=== PATIENT | female | born 1955 | race Caucasian/White ===

== ENCOUNTER 2021-08-19 10:42 | Inpatient (IN) | payer MEDICARE, OTHER ==
[~2021-08-19] VITALS: Ht 165.1 cm; Wt 93.2 kg
[2021-08-19] MEDS ORDERED: QUET300T2 PO (10:55)
[2021-08-19] MEDS ORDERED: BUPR150T12 PO (10:55)
[2021-08-19] MEDS ORDERED: PRAMIPEXOLE (10:55)
[2021-08-19] MEDS ORDERED: DEXTROAMP (10:55)
[2021-08-19] MEDS ORDERED: METO1TAB7 PO (10:55)
[2021-08-19] MEDS ORDERED: ENAL5TA PO (10:55)
[2021-08-19] MEDS ORDERED: ONDANSETRON 4MG/2ML VIAL IV ONE ×2 (11:10→12:20)
[2021-08-19] MEDS: MORPHINE 4 MG/ML 1ML VIAL/SYRINGE (J2270) IV PRN ×3 (11:15→11:51)
[2021-08-19] MEDS ORDERED: NS 1,000 ML IV SCH (11:20)
--- NOTE | 2021-08-19 11:32 | REP ---
INDICATION: right Hip pain COMPARISON: None. TECHNIQUE: Portable AP and lateral views of the right hip FINDINGS: Evidence for dislocated right hip replacement. No acute fracture. IMPRESSION: Right hip prosthesis dislocation. <Electronically signed by Ariel Dalton > 08/19/21 1122
[2021-08-19] MEDS: propofoL 200 MG/20 ML VIAL IV.PROC PRN ×9 (11:55→12:36)
--- NOTE | 2021-08-19 12:21 | REP ---
INDICATION: reduction COMPARISON: None. TECHNIQUE: Single AP view of the right hip. FINDINGS: Prior hip replacement noted. No acute fracture. Continued superior dislocation of the femur in relation to the acetabulum. IMPRESSION: Continued evidence for superior dislocation. <Electronically signed by Ariel Dalton > 08/19/21 2683
[2021-08-19] MEDS ORDERED: MORPHINE 4 MG/ML 1ML VIAL/SYRINGE (J2270) IV PRN (12:50)
--- NOTE | 2021-08-19 12:52 | REP ---
INDICATION: ?reduction Status post arthroplasty. COMPARISON: None. TECHNIQUE: Single portable AP view of the right hip FINDINGS: Continued evidence for superior dislocation of the hip prosthesis. IMPRESSION: Continued superior dislocation. <Electronically signed by Ariel Dalton > 08/19/21 2882
--- NOTE | 2021-08-19 13:07 | REP ---
INDICATION: pre-op. COMPARISON: None. TECHNIQUE: Portable FINDINGS: The technique utilized in obtaining the radiograph has magnified the cardiac silhouette and accentuated the interstitial markings. The cardiomediastinal silhouette is within normal limits. The heart is not enlarged. Lung white are clear. The pleural angles are sharp. There is been previous cervicothoracic fixation and left shoulder arthroplasty. IMPRESSION: There is no acute cardiopulmonary disease. <Electronically signed by Andrew Brennan > 08/19/21 3800
[2021-08-19 13:29] LABS: HEMATOCRIT 40.3 % (36.0-47.0); HEMOGLOBIN 12.8 g/dl (12.0-15.5); MEAN CORPUSCULAR HEMOGLOBIN 26.1 pg (27.0-33.0); MEAN CORPUSCULAR HGB CONC 31.8 g/dl (32.0-36.5); MEAN CORPUSCULAR VOLUME 82.2 fl (80.0-96.0); PLATELET COUNT, AUTOMATED 446 10^3/uL (150-450)
[2021-08-19 13:34] LABS: BLOOD UREA NITROGEN 15 MG/DL (7-18); CALCIUM LEVEL 9.7 MG/DL (8.8-10.2); CARBON DIOXIDE LEVEL 27 MEQ/L (21-32); CHLORIDE LEVEL 102 MEQ/L (98-107); CK-MB VALUE MASS < 1.0 NG/ML (<3.6); CPK CREATINE PHOSPHOKINASE 129 U/L (26-192); CREATININE FOR GFR 1.29 MG/DL (0.55-1.30); GLOMERULAR FILTRATION RATE 44.2 (>45); GLUCOSE, FASTING 121 MG/DL (70-100); MB/CK RELATIVE INDEX 0.78 (< OR =4); POTASSIUM SERUM 3.6 MEQ/L (3.5-5.1); SODIUM LEVEL 137 MEQ/L (136-145); TROPONIN I < 0.02 NG/ML (< 0.10)
--- OUTSIDE RECORDS SUMMARY | 2021-08-19 14:23 | CCD | Continuity of Care Document ---
Author Author Gosia FOSTER Organization Unknown Address [address] [facility] [address] [place] [address] Phone [phone] Care Team Providers Care Spouter Name Role Phone ROBERT FOSTER AUTM Social History Type Date Description Comments Sex Unknown Procedures Date Code Description Status 07/28/2021 03583 Office/Outpatient [facility] 30 -44 Minutes Completed Encounters Type Date Location Provider Dx Diagnosis Office Visit 07/28/2021 10:30a [facility] PAM Escalante I10 Essential (primary) hyperten nguyen E78.5 Hyperlipidemia, unspecified F90.9 Attention-deficit hyperactiv ity disorder, unspecified type Assessments Date Code Description Provider 07/28/2021 I10 Essential (primary) hypertension PAM Steward 07/28/2021 E78.5 Hyperlipidemia, unspecified PAM Delgado 07/28/2021 F90.9 Attention-deficit hyperactivity disorder, unspecified type PAM Steward Plan of Treatment Future Appointment(s):* 10/26/2021 10:30 am - PAM Steward at [facility] Referrals Refer to Reason for Referral Status Appt Date Niurka Keith DR. NEW PATIENT TO MY PRACTICE, NEEDS MONITORING OF HER CHF. PLEASE EVAL AND TREAT Sent [facility] [address] [place], [place] [id number] [phone] [facility] NEW PATIENT TO PRACTICE AND RECENTLY MOVED TO [place]. HAS HAD RECENT RT HIP SURGERY. NEEDS HEALING FOLLOW UP CARE. Sent [address] [place] [address] [phone]
--- OUTSIDE RECORDS SUMMARY | 2021-08-19 14:23 | CCD ---
Author Author [facility] Organization [facility] Address Unknown Phone Unavailable Care Team Providers Care Desk Editor Name Role Phone TONTARSEDMUNDO, G ROBERT PA Unavailable Unavailable TONTARSKI, G ROBERT PA Unavailable Unavailable TONTARSKI, G ROBERT PA Unavailable Unavailable TONTARSKI, G ROBERT PA Unavailable Unavailable TONTARSKI, G ROBERT PA Unavailable Unavailable TONTARSKI, G ROBERT PA Unavailable Unavailable TONTARSKI, G ROBERT PA Unavailable Unavailable TONTARSKI, G ROBERT PA Unavailable Unavailable TONTARSKI, G ROBERT PA Unavailable Unavailable TONTARSKI, G ROBERT PA Unavailable Unavailable TONTARSKI, G ROBERT PA Unavailable Unavailable TONTARSKI, G ROBERT PA Unavailable Unavailable TONTARSKI, G ROBERT PA Unavailable Unavailable TONTARSKI, G ROBERT PA Unavailable Unavailable TONTARSKI, G ROBERT PA Unavailable Unavailable TONTARSKI, G ROBERT PA Unavailable Unavailable TONTARSKI, G ROBERT PA Unavailable Unavailable TONTARSKI, G ROBERT PA Unavailable Unavailable TONTARSKI, G ROBERT PA Unavailable Unavailable TONTARSKI, G ROBERT PA Unavailable Unavailable TONTARSKI, G ROBERT PA Unavailable Unavailable TONTARSKI, G ROBERT PA Unavailable Unavailable TONTARSKI, G ROBERT PA Unavailable Unavailable TONTARSKI, G ROBERT PA Unavailable Unavailable TONTARSKI, G ROBERT PA Unavailable Unavailable TONTARSKI, G ROBERT PA Unavailable Unavailable TONTARSKI, G ROBERT PA Unavailable Unavailable TONTARSKI, G ROBERT PA Unavailable Unavailable TONTARSKI, G ROBERT PA Unavailable Unavailable TONTARSKI, G ROBERT PA Unavailable Unavailable TONTARSKI, G ROBERT PA Unavailable Unavailable TONTARSKI, G ROBERT PA Unavailable Unavailable TONTARSKI, G ROBERT PA Unavailable Unavailable TONTARSKI, G ROBERT PA Unavailable Unavailable TONTARSKI, G ROBERT PA Unavailable Unavailable TONTARSKI, G ROBERT PA Unavailable Unavailable TONTARSKI, G ROBERT PA Unavailable Unavailable TONTARSKI, G ROBERT PA Unavailable Unavailable TONTARSKI, G ROBERT PA Unavailable Unavailable TONTARSKI, G ROBERT PA Unavailable Unavailable TONTARSKI, G ROBERT PA Unavailable Unavailable TONTARSKI, G ROBERT PA Unavailable Unavailable TONTARSKI, G ROBERT PA Unavailable Unavailable TONTARSKI, G ROBERT PA Unavailable Unavailable TONTARSKI, G ROBERT PA Unavailable Unavailable TONTARSKI, G ROBERT PA Unavailable Unavailable TONTARSKI, G ROBERT PA Unavailable Unavailable Re-disclosure Warning The records that you are about to access may contain information from federally-assisted alcohol or drug abuse programs. If such information is present, then the following federally mandated warning applies: This information has been disclosed to you from records protected by federal confidentiality rules (42 CFR part 2). The federal rules prohibit you from making any further disclosure of this information unless further disclosure is expressly permitted by the written consent of the person to whom it pertains or as otherwise permitted by 42 CFR part 2. A general authorization for the release of medical or other information is NOT sufficient for this purpose. The Federal rules restrict any use of the information to criminally investigate or prosecute any alcohol or drug abuse patient.The records that you are about to access may contain highly sensitive health information, the redisclosure of which is protected by Article 27-F of the [place] Public [facility] law. If you continue you may have access to information: Regarding HIV / AIDS; Provided by facilities licensed or operated by the [place] Office of Mental Health; or Provided by the [place] Office for People With Developmental Disabilities. If such information is present, then the following [place] mandated warning applies: This information has been disclosed to you from confidential records which are protected by state law. State law prohibits you from making any further disclosure of this information without the specific written consent of the person to whom it pertains, or as otherwise permitted by law. Any unauthorized further disclosure in violation of state law may result in a fine or shelter sentence or both. A general authorization for the release of medical or other information is NOT sufficient authorization for further disc losure. Encounters Encounter Providers Location Date Indications Data Source(s ) Outpatient Attender: [facility] 07/28/2021 10:30:00 AM EDT [facility] (Terry Hewitt MD) Medications Medication Brand Name Start Date Product Form Dose Route Admi nistrative Instructions Pharmacy Instructions Status Indications Reaction Description Data Source(s) 300 mg 08/03/2021 12:00:00 AM EDT tablet 30 TAKE ONE TABLET BY MOUTH AT BEDTIME TAKE ONE TABLET BY MOUTH AT BEDTIME SOLD: 08/08/2021 [facility] 24 HR Bupropion Hydrochloride 150 MG Extended Release Oral T ablet BUPROPION HCL 08/01/2021 12:00:00 AM EDT tablet extended release 24 hr 30 TAKE ONE TABLET BY MOUTH EVERY MORNING TAKE ONE TABLET BY MOUTH EVERY MORNING SOLD: 08/08/2021 [facility] 50 mg 07/29/2021 12:00:00 AM EDT tablet extended release 24 hr 90 TAKE ONE TABLET BY MOUTH EVERY DAY TAKE ONE TABLET BY MOUTH EVERY DAY SOLD: 07/29/2021 [facility] 5 mg 07/29/2021 12:00:00 AM EDT tablet 90 TAKE ONE TABLET BY MOUTH EVERY DAY TAKE ONE TABLET BY MOUTH EVERY DAY SOLD: 07/29/2021 [facility] Pramipexole dihydrochloride 0.5 MG Oral Tablet PRAMIPEXOLE D I-HCL 07/29/2021 12:00:00 AM EDT tablet 90 TAKE ONE TABLET BY MOUTH AT BEDTIME TAKE ONE TABLET BY MOUTH AT BEDTIME SOLD: 07/29/2021 [facility] 5 mg 07/21/2021 12:00:00 AM EDT tablet 60 TAKE ONE TABLET BY MOUTH TWICE A DAY MAXIMUM DAILY DOSE = 2 TAKE ONE TABLET BY MOUTH TWICE A DAY MAX IMUM DAILY DOSE = 2 SOLD: 07/21/2021 [facility] Insurance Providers Payer name Policy type / Coverage type Policy ID Covered libertarian ID Covered libertarian's relationship to ramirez Policy Ramirez Plan Information BC BLUE CARD 1 [id number] AETNA OPEN CH INACTI 2 [id number] BC EXC PLANS 1 [id number] BLUE CROSS [id number] SPO [id number] BC EXC PLANS 1 [id number] BLUE CROSS CNY 1 [id number] EXCELLUS H [id number] Spouse [id number] BC EXC PLANS 1 [id number] BCBS Ppo Medigap Part B [id number] Family Dependent BCBS Ppo Health Maintenance Organization (HMO) [id number] Fa brijesh Dependent EXCELLUS C [id number] Self [id number] AETNA LIFE CASUALTY [id number] SP [id number] AETNA U [id number] Spouse [id number] AETNA U [id number] Spouse [id number] AETNA LIFE CASUALTY [id number] SPO [id number] STATE FARM E [id number] Self [id number] State Farm Insurance Workers Compensation [id number] Self State Farm Insurance Workers Compensation [id number] Self State Farm Insurance Workers Compensation [id number] Self State Farm Insurance Workers Compensation [id number] Self State Farm Insurance Workers Compensation [id number] Self STATE FARM E [id number] Self [id number] State Farm Insurance Workers Compensation [id number] Self State Farm Insurance Workers Compensation [id number] Self State Farm Insurance Workers Compensation [id number] Self State Farm Insurance Workers Compensation [id number] Self No Fault Workers Compensation [id number] Self No Fault Workers Compensation [id number] Self No Fault Workers Compensation [id number] Self Aetna [facility] F [id number] SPOUSE [id number] MEDICARE A Self NCO EPALS [id number] SP [id number] S O UNAVAILABLE UNAVAILA BLE AETNA MEDICARE [id number] SP [id number] AETNA [place] [id number] Aetna [id number] 18 [id number] SELF PAY UNAVAILABLE UNAVAILA BLE Aetna US [employer] Commercial [id number] Family Dependent AETNA LIFE INSURANCE CO 0 Commercial Insur ance AETNA O [id number] SP [id number] Aetna [employer] Healthcare F [id number] SPOUSE [id number] 18 [id number] NF State Farm No Fault [id number] 18 [id number] Aetna [employer] Commercial [id number] Family Dependent Aetna [employer] Health Care Commercial [id number] Family Dependent Blue Shield Market[employer] [id number] 01 [id number] Blue Shield [facility] [id number] 01 [id number] Blue Shield [facility] [id number] STATE FARM NF O [id number] S [id number] BLUE CROSS O [id number] SP [id number] STATE FARM NF O UNAVAILABLE S UNAV AILABLE BLUE CROSS O [id number] SP [id number] BLUE CROSS O [id number] SP [id number] BLUE CROSS [id number] SPO [id number] BCBS HMO [place]UE[place] O [id number] U [id number] SELF PAY 2 UNAVAILABLE 1 UNAVAILA BLE BC EXC PLANS 1 [id number] SELFPAY 5 UNAVAILABLE 1 UNAVAILA BLE Blue Shield [facility] [id number] 18 [id number] BC BLUE CARD 1 [id number] Problems, Conditions, and Diagnoses No Information Surgeries/Procedures Procedure Description Date Indications Data Source(s) OFFICE OUTPATIENT NEW 30 MINUTES 07/28/2021 12:00:00 A M EDT [facility] (Terry Hewitt MD) Results No Information Social History No Information
--- OUTSIDE RECORDS SUMMARY | 2021-08-19 14:23 | CCD | Continuity of Care Document ---
Author Author Gosia FOSTER Organization Unknown Address [address] [facility] [address] [place] [address] Phone [phone] Care Team Providers Care Cigarette Carton Sealer Name Role Phone ROBERT FOSTER AUTM Social History Type Date Description Comments Sex Unknown Procedures Date Code Description Status 07/28/2021 20306 Office/Outpatient New [facility] 30 -44 Minutes Completed Encounters Type Date Location Provider Dx Diagnosis Office Visit 07/28/2021 10:30a [facility] PAM Escalante I10 Essential (primary) hyperten nguyen E78.5 Hyperlipidemia, unspecified F90.9 Attention-deficit hyperactiv ity disorder, unspecified type Assessments Date Code Description Provider 08/04/2021 I10 Essential (primary) hypertension PAM Steward 08/04/2021 E78.5 Hyperlipidemia, unspecified PAM Delgado 07/28/2021 I10 Essential (primary) hypertension PAM Steward 07/28/2021 E78.5 Hyperlipidemia, unspecified PAM Delgado 07/28/2021 F90.9 Attention-deficit hyperactivity disorder, unspecified type PAM Steward Plan of Treatment Future Appointment(s):* 10/26/2021 10:30 am - PAM Steward at [facility] Referrals Refer to Reason for Referral Status Appt Date Niurka Keith DR. NEW PATIENT TO MY PRACTICE, NEEDS MONITORING OF HER CHF. PLEASE EVAL AND TREAT Sent [facility] [address] [address] [place] [address] [phone] [facility] NEW PATIENT TO PRACTICE AND RECENTLY MOVED TO [place]. HAS HAD RECENT RT HIP SURGERY. NEEDS HEALING FOLLOW UP CARE. Sent [address] [address] [phone]
[2021-08-19 14:24] LABS: RSV AMPLIFICATION NEGATIVE (NEGATIVE)
[2021-08-19] MEDS ORDERED: MIRA0.5T PO (15:01)
[2021-08-19] MEDS ORDERED: ADDE1TAB14 PO (15:01)
[2021-08-19] MEDS ORDERED: HOME MED LIST COMPLETE! XX SCH (15:05)
[2021-08-19 15:40] VITALS: BP 108/77
[2021-08-19] MEDS ORDERED: HYDROMORPHONE HCL 0.5 MG/ 0.5 ML SYRINGE (J1170 PER 1) IV PRN ×2 (15:45→18:45)
[2021-08-19] MEDS ORDERED: D5W/0.45% SODIUM CHLORIDE 1,000 ML IV SCH (16:00)
--- NOTE | 2021-08-19 16:17 | HPEPDOC ---
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 She describes 10/10 sharp pain in the right hip radiating to her foot w difficulty standing up, bearing weight, and ambulating. Pt was in her usual state of health until today, and denies any chest pain, pressure, tightness, dizziness, lightheadedness, sob, cough, fever, chills, n/v/abd pain/diarrhea, constipation, dysuria, urgency,frequency, flank pain, changes in weight/appetite/sleep habits/bowel habits, rash, muscle aches, headache, sore throat, ear pain/discharge, anxiety. In the ER, both Dr. Gill and Dr. Ngo attempted x 2 to correct the dislocated right prosthetic hip , but were unsuccessful. Covid was negative, CXR no infiltrates or edema. EKG-sinus. Hospitalist was asked to admit the patient. Ortho to bring the pt to the OR today. PAST MEDICAL HISTORY: HTN CHF, unknown EF legg carve perthes disease Depression Uterine bleeding requiring partial hysterectomy PAST SURGICAL HISTORY: Right hip replacement 03/2021 Partial hysterectomy left foot surgery back and neck surgery SOCIAL HISTORY: full code denies etoh cig drug use. 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 REVIEW OF SYSTEMS:10 point ros neg aside from positive findings in HPI C HOME MEDICATIONS: Please see below. PHYSICAL EXAMINATION: VITAL SIGNS: see below GENERAL APPEARANCE: no distress HEENT: face symmetric tongue midline moist mm no cervical lad, JVD CARDIOVASCULAR: S1S2 RRR no S3 no carotid bruit LUNGS: AEBE CTAB ABDOMEN: +BS soft nt nd no rbound or guarding no HSM EXTREMITIES: right hip tender, no edema b/l le. dp and pt noted b/l feet. SKIN: pink in color, warm, dry. LABORATORY DATA: See below. IMAGING: see below MICROBIOLOGY: Please see below. ASSESSMENT: 65 y/o F w h/o legg calve perthes disease, s/p right hip replacement, CHF, unknown EF, HTN, Depression w right hip prosthetic hip dislocation, unable to be reduced in the ER x 2 by. Right prosthetic hip dislocation -s/p attempted reduction at the bedside x 2 -npo -ortho consulted . -OR later today. -PRN pain meds -medically optimized to proceed to surgery. no acute cardiac ischemic symptoms. CHF, unknown EF -compensated -obtain outpt pcp records -check 2D echo HTN -resumed home meds Depression -resumed home meds diet: npo ivfluids Vital Signs Vital Signs Date Time Temp Pulse Resp B/P (MAP) Pulse Ox O2 Delivery O2 Flow Rate FiO2 08/19/21 13:01 86 20 159/65 99 Nasal Cannula 4.0 08/19/21 10:52 97.0 Laboratory Data Labs 24H Laboratory Tests 2 08/19/21 13:16: Nucleated Red Blood Cells % (auto) 0.0, Anion Gap 8, Glomerular Filtration Rate 44.2L, Calcium Level 9.7, Total Creatine Kinase 129, Creatine Kinase MB < 1.0, Creatine Kinase MB Relative Index 0.78, Troponin I < 0.02 CBC/BMP Laboratory Tests 08/19/21 13:16 Home Medications Scheduled Bupropion Hcl (Bupropion Xl) 150 Mg Tab.er.24h, 150 MG PO DAILY Dextroamphetamine/Amphetamine (Adderall 5 mg Tablet) 5 Mg Tablet, 5 MG PO BID Enalapril Maleate (Enalapril Maleate) 5 Mg Tablet, 5 MG PO DAILY Metoprolol Succinate (Metoprolol Succinate) 50 Mg Tab.er.24h, 50 MG PO DAILY Pramipexole Di-HCl (Mirapex) 0.5 Mg Tablet, 0.5 MG PO QHS Quetiapine Fumarate (Quetiapine Fumarate) 300 Mg Tablet, 300 MG PO QHS Allergies Coded Allergies: ciprofloxacin (Verified Allergy, Unknown, 08/19/21) codeine (Verified Allergy, Unknown, 08/19/21) prednisone (Verified Allergy, Unknown, 08/19/21) A-FIB/CHADSVASC A-FIB History Current/History of A-Fib/PAF?: No Current PO Anticoag Therapy: No Age/Risk Factor Scoring CHADSVASC: CHADSVASC Response (Comments) Value Age Risk Factor Age 65-74 years old 1 Gender Risk Factor Female 1 Hx of CHF Yes 1 Hx of HTN Yes 1 Hx of Stroke/TIA/or VTE No 0 Hx of Diabetes No 0 Hx of Vascular Disease No 0 Total 4 Treatment Treatment ordered: NONE DEON LYON MD Aug 19, 2021 14:31
[2021-08-19] MEDS ORDERED: KETOROLAC 30 MG/ML 1ML VIAL IV ONE (16:30)
--- NOTE | 2021-08-19 16:52 | CR.PDOC ---
General Date of Consultation: Aug 19, 2021 Consultation REASON FOR CONSULTATION/CHIEF COMPLAINT: Right hip dislocation LARISA Hx from [facility] for admission and on patient interview HISTORY OF PRESENT ILLNESS: Patient bent over earlier today and felt a pop, unable to weightbear with severe pain. History of R LARISA roughly 4 mos ago for Complications of Perthes. ED unsuccessfull with CR under CS. ALLERGIES: Please see below. HOME MEDICATIONS: Please see below. PAST MEDICAL HISTORY: HTN CHF, unknown EF legg carve perthes disease Depression Uterine bleeding requiring partial hysterectomy PAST SURGICAL HISTORY: Right hip replacement 03/2021 Partial hysterectomy left foot surgery back and neck surgery SOCIAL HISTORY: full code denies etoh cig drug use. 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 REVIEW OF SYSTEMS:negative except for [facility] HOME MEDICATIONS: Please see below. PHYSICAL EXAMINATION: VITAL SIGNS: see below GENERAL APPEARANCE: Mild distress EXTREMITIES: right leg shortened with IR. Palpable posterior tibial and DP pulses. Gross sensation intact. Moving toes and ankle. LABORATORY DATA: See below. IMAGING: Right TOTAL HIP arthroplasty dislocation with no signs of periprosthetic fracture. MICROBIOLOGY: Please see below. Attempted 2nd CR with CS in the ED. Unsuccessful as the patient was having apnea with sedation and this limited the relaxation. Ultimately, patient was fighting the reduction attempts. Grossly NVI R foot and ankle, post reduction maneuver and knee immobilizer application ASSESSMENT: 65 y/o F w s/p Right LARISA 4 mos ago, elsewhere. Failed CR with CS x2. Plan for CR vs open reduction in the OR. Patient consented for the procedure, but refused blood transfusion consent. Patient is aware that any prosthesis complications that occur or are noted with an open reduction may have to be addressed at a later date with a separate procedure. Vital Signs/I&O Vital Signs Date Time Temp Pulse Resp B/P (MAP) Pulse Ox O2 Delivery O2 Flow Rate FiO2 08/19/21 16:42 97.0 84 16 148/74 96 Room Air 4.0 Laboratory Data Labs 24H Laboratory Tests 2 08/19/21 13:16: Nucleated Red Blood Cells % (auto) 0.0, Anion Gap 8, Glomerular Filtration Rate 44.2L, Calcium Level 9.7, Total Creatine Kinase 129, Creatine Kinase MB < 1.0, Creatine Kinase MB Relative Index 0.78, Troponin I < 0.02, Coronavirus (COVID- 19)(PCR) NEGATIVE, Influenza Type A (RT-PCR) NEGATIVE, Influenza Type B (RT-PCR) NEGATIVE, Respiratory Syncytial Virus (PCR) NEGATIVE CBC/BMP Laboratory Tests 08/19/21 13:16 Allergies Coded Allergies: ciprofloxacin (Verified Allergy, Unknown, 08/19/21) codeine (Verified Allergy, Unknown, 08/19/21) prednisone (Verified Allergy, Unknown, 08/19/21) Home Medications Scheduled Bupropion Hcl (Bupropion Xl) 150 Mg Tab.er.24h, 150 MG PO DAILY, (Reported) Dextroamphetamine/Amphetamine (Adderall 5 mg Tablet) 5 Mg Tablet, 5 MG PO BID, (Reported) Enalapril Maleate (Enalapril Maleate) 5 Mg Tablet, 5 MG PO DAILY, (Reported) Metoprolol Succinate (Metoprolol Succinate) 50 Mg Tab.er.24h, 50 MG PO DAILY, (Reported) Pramipexole Di-HCl (Mirapex) 0.5 Mg Tablet, 0.5 MG PO QHS, (Reported) Quetiapine Fumarate (Quetiapine Fumarate) 300 Mg Tablet, 300 MG PO QHS, (Reported) EFREM POTTER MD Aug 19, 2021 16:52
[2021-08-19] MEDS ORDERED: KETAMINE HCL 200 MG/20 ML VIAL As Ordered ONE (17:23)
[2021-08-19] MEDS ORDERED: dexameTHASONE 4 MG/ML 1ML VIAL (J1100 PER 1MG) As Ordered ONE (17:24)
[2021-08-19] MEDS ORDERED: propofoL 200 MG/20 ML VIAL As Ordered ONE (17:24)
[2021-08-19] MEDS ORDERED: LIDOCAINE 2% 100MG/5ML SDV (FOR ANES.) As Ordered ONE (17:24)
[2021-08-19] MEDS ORDERED: ONDANSETRON 4MG/2ML VIAL As Ordered ONE (17:24)
[2021-08-19] MEDS ORDERED: fentaNYL 100 MCG/2 ML INJECTION (J3010) As Ordered ONE (17:24)
[2021-08-19] MEDS ORDERED: MIDAZOLAM INJ 2MG/2ML VIAL (J2250 PER 1MG) As Ordered ONE (17:24)
[2021-08-19] MEDS ORDERED: ROCURONIUM BROMIDE 50 MG/5 ML VIAL As Ordered ONE (17:24)
[2021-08-19] MEDS ORDERED: METOCLOPRAMIDE INJ 10MG/2ML VIAL (J2765 PER 1) As Ordered ONE (17:51)
[2021-08-19] MEDS ORDERED: ACETAMINOPHEN 1000MG 100ML IV BTL (OFIRMEV) (J0131 PER 10MG) As Ordered ONE (17:51)
[2021-08-19] MEDS ORDERED: SUGAMMADEX SODIUM 500 MG/5 ML VIAL (BRIDION) As Ordered ONE (18:16)
[2021-08-19] MEDS ORDERED: ePHEDrine SULFATE 25 MG/5 ML(5MG/ML) SYRINGE As Ordered ONE (18:18)
[2021-08-19] MEDS ORDERED: PHENYLephrine 500MCG 5ML (100MCG/ML) SYRINGE As Ordered ONE (18:18)
[2021-08-19] MEDS ORDERED: LR 1,000 ML IV SCH ×2 (18:45→19:05)
[2021-08-19] MEDS ORDERED: ONDANSETRON 4MG/2ML VIAL IV PRN ×2 (18:45→19:00)
[2021-08-19] MEDS ORDERED: fentaNYL 100 MCG/2 ML INJECTION (J3010) IV PRN (18:45)
[2021-08-19] MEDS ORDERED: oxyCODONE 5MG TAB PO PRN ×2 (18:45→19:00)
[2021-08-19] MEDS ORDERED: traMADol 50 MG TAB PO PRN (19:00)
[2021-08-19] MEDS ORDERED: SENNA 8.6 MG TAB (SENOKOT) PO PRN (19:00)
--- NOTE | 2021-08-19 19:01 | REP ---
INDICATION: S/P CLOSED REDUCTION. PT IN PACU.LOW SET AP PELVIS ORDERED.. COMPARISON: None. TECHNIQUE: Portable AP right hip. FINDINGS: Total right hip prosthesis is noted. The previously noted superior dislocation of the prosthetic femoral head now appears to have been reduced with appropriate alignment of the femoral head with the prosthetic acetabulum. The osseous structures are intact. IMPRESSION: Successful reduction of the superior dislocation of the prosthetic right femoral head. <Electronically signed by Deejay Chapman > 08/19/21 7580
--- NOTE | 2021-08-19 20:11 | ROOPDOC ---
[facility] Report Of Operation Report of Operation DATE OF PROCEDURE: 08/19/21 PREPROCEDURE DIAGNOSES: Dislocated right total hip arthroplasty POSTPROCEDURE DIAGNOSES: As above PROCEDURE PERFORMED: Closed reduction under anesthetic of right total hip arthroplasty with fluoroscopic guidance SURGEON: Aiden Potter MD REPORT DEVELOPER: Dara Ramirez PA-C ANESTHESIA: General anesthetic ESTIMATED BLOOD LOSS: Closed procedure with no blood loss COMPLICATIONS: No known complication REMARKS: Patient was found to be grossly neurovascularly intact pre and post reduction to the right lower extremity with palpable posterior tibial pulse and dorsalis pedis pulse moving foot and ankle. FINDINGS: No obvious signs of fracture or periprosthetic fracture SPECIMENS REMOVED: None PROCEDURE NOTE: Patient was seen in the preoperative area her right lower extremity was marked. She was consented for closed reduction possible open reduction of right hip periprosthetic dislocation. DESCRIPTION OF PROCEDURE: The patient was brought to the operating room. A surgical pause was carried out. The patient underwent a general anesthetic. She was then transferred to the operating room table and padded appropriately. She was secured to the table using straps and arm boards in the standard fashion. She then underwent a general anesthetic. Once the patient was appropriately rel axed, using traction and countertraction, an attempt was made at reduction of the dislocated hip. This was after few minutes of inline traction had been held. After a few attempts were unsuccessful, fluoroscopic guidance was utilized and the hip reduction was visualized under fluoroscopy. Fluoroscopic imaging was saved and the hip was taken through a very gentle range of motion with internal or external rotation. Deep hip flexion was avoided as this was how the patient dislocated her hip. There did not appear to be any periprosthetic fracture otherwise The patient's anesthetic was reversed and she was taken to the recovery room in stable condition with no known complications. Postoperatively, the patient was able to move her toes and foot and ankle. She had intact sensation to the 1st webspace of the foot and a palpable posterior tibial and dorsalis pedis pulse. The patient will be admitted to the hospital overnight and evaluated by physical therapy and Occupational Therapy in the morning. She will wear the knee immobilizer at all times except for bathing. She will be weightbearing as tolerated. Posterior hip approach was utilized, as per the patient and based on the patient's incisions. She will have posterior hip precautions in place for 3 months. AIDEN POTTER MD Aug 19, 2021 20:11
[2021-08-19 20:45] VITALS: BP 120/70
[2021-08-19] MEDS: ADDERALL 5 MG TAB PO SCH (21:19)
[2021-08-19] MEDS: NAPROXEN 250 MG TAB PO SCH (21:19)
[2021-08-19] MEDS: ASPIRIN 81MG ENTERIC TABLET PO SCH (21:19)
[2021-08-19] MEDS: DOCUSATE SODIUM 100MG CAPSULE PO SCH (21:20)
[2021-08-19] MEDS: ACETAMINOPHEN TAB 650MG DOSE (2X325MG) PO SCH (21:20)
[2021-08-19 21:45] VITALS: BP 150/86
[2021-08-19] MEDS: QUEtiapine FUMARATE 100 MG TAB PO SCH (22:03)
[2021-08-19] MEDS: PRAMIPEXOLE 0.25 MG TAB PO SCH (22:03)
[2021-08-19 22:45] VITALS: BP 130/85
[2021-08-20] VITALS: BP 118/67
[2021-08-20] MEDS: ACETAMINOPHEN TAB 650MG DOSE (2X325MG) PO SCH ×4 (02:00→19:19)
[2021-08-20 06:51] VITALS: BP 128/63
--- NOTE | 2021-08-20 07:32 | ECGEPIP ---
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
[2021-08-20] MEDS ORDERED: FLUBLOK(EGG FREE)(QUAD)INFLUENZA VACC 0.5ML SYRINGE 18YRS & OLDER IM ONE (09:00)
[2021-08-20] MEDS ORDERED: PREVNAR 13 VACCINE SYRINGE IM ONE (09:00)
[2021-08-20] MEDS ORDERED: BUMETANIDE 1 MG TAB PO SCH (10:00)
[2021-08-20] MEDS: buPROPion **XL** TABLET 150MG (WELLBUTRIN XL) PO SCH (10:01)
[2021-08-20] MEDS: ASPIRIN 81MG ENTERIC TABLET PO SCH ×2 (10:01→19:19)
[2021-08-20] MEDS: DOCUSATE SODIUM 100MG CAPSULE PO SCH ×2 (10:01→19:16)
[2021-08-20] MEDS: NAPROXEN 250 MG TAB PO SCH ×2 (10:02→19:20)
[2021-08-20] MEDS: ADDERALL 5 MG TAB PO SCH ×3 (10:02→19:22)
[2021-08-20] MEDS: METOPROLOL SUCC (TopROL XL) 50MG **XL** TAB PO SCH (10:04)
[2021-08-20] MEDS: ENALAPRIL MALEATE 5 MG TAB PO SCH (11:32)
[2021-08-20] MEDS: oxyCODONE 5MG TAB PO PRN (14:19)
--- NOTE | 2021-08-20 14:30 | IPN ---
PROGRESS NOTE DATE: 08/20/2021 SUBJECTIVE: Patient was seen and examined at the bedside. Chart has been reviewed. She reports no pain when she is laying on her back with a pillow on total hip replacement right hip. She is status post reduction of the dislocated right hip prosthesis yesterday in the operating room (OR) yesterday after two failed attempts at the bedside. No other issues overnight. Patient slept well. She has no difficulty with breathing. Denies chest pain, pressure, tightness, nausea, vomiting or abdominal pain. Appetite is good. No fever or chills overnight. OBJECTIVE: VITAL SIGNS: Temperature 96.9, pulse 73, respiratory rate 18, blood pressure 128/63, 95% on room air. GENERAL: Patient is awake, alert, oriented to person, place and time, answering questions appropriately. LUNGS: Clear to auscultation. No wheezing, rales or rhonchi. HEART: S1, S2. Sinus rhythm. ABDOMEN: Obese, soft, nontender, nondistended. Positive bowel sounds. EXTREMITIES: Postoperative right hip. Skin color is pink. Skin is warm and dry. Dorsalis pedis and posterior tibialis pulses are noted bilaterally. Sensation is intact. LABORATORY DATA: Laboratory data of 08/19/2021 has been reviewed. 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 IMPRESSION: 1. Dislocated right hip prosthesis. Postoperative management per orthopedic surgery. Physical therapy (PT)/occupational therapy (OT) has been consulted. Patient is on as needed pain medications. Bowel regimen. Acute rehabilitation unit (ARU) has been consulted. 2. Congestive heart failure (CHF), compensated. Unknown ejection fraction. Continued on Bumex 2 mg daily for five days and as needed. 3. Hypertension. Controlled. On chronic metoprolol 50 mg daily and enalapril. 4. Depression. On Seroquel. DISPOSITION: One to two days.
--- NOTE | 2021-08-20 14:51 | IPNPDOC ---
Text Note Date of Service The patient was seen on 08/20/21. NOTE Post procedure day 1 closed reduction under anesthesia for dislocated right total hip arthroplasty Patient states that her pain is much better controlled today. She is taking pain medication for the aches and pains that she is receiving. She is very comfortable in the knee immobilizer and is very happy to be wearing this as it does stabilize her leg and provide comfort. She was up and weightbearing with physical therapy earlier today. She is doing quite well and the plan is for discharge home tomorrow. Patient reports that she also walked to the bathroom. On physical examination, the patient is able to move her right foot and ankle. She has light sensation intact in the first webspace and palpable dorsalis pedis pulse. Knee immobilizer is in place to the right knee. This will remain in position for 6 weeks aside from toileting. The Schaefer catheter was discontinued today Post reduction x-ray films in the recovery room demonstrated a well reduced total hip arthroplasty on the right without any obvious signs of periprosthetic fracture or otherwise. The patient will likely be discharged home tomorrow with follow-up in approximately 2 weeks in my clinic for reevaluation. VS,Fishbone, I+O VS, Fishbone, I+O Vital Signs Date Time Temp Pulse Resp B/P (MAP) Pulse Ox O2 Delivery O2 Flow Rate FiO2 08/20/21 14:19 18 08/20/21 11:32 124/65 08/20/21 10:04 85 08/20/21 06:51 96.9 94 Room Air 08/19/21 18:58 3.0 I&O- Last 24 Hours up to 6 AM 08/20/21 06:00 Intake Total 2035 ml Output Total 550 ml Balance 1485 ml EFREM POTTER MD Aug 20, 2021 14:51
--- NOTE | 2021-08-20 15:10 | REP ---
INDICATION: DISLOCATED RIGHT HIP. COMPARISON: 08/19/2021. TECHNIQUE: Two C-arm views right hip. FINDINGS: There is relocation of the prosthetic acetabular head within the prosthetic acetabulum. IMPRESSION: 16 seconds of fluoroscopy time was utilized. <Electronically signed by Deejay Chapman > 08/20/21 [id number]
[2021-08-20] MEDS: PRAMIPEXOLE 0.25 MG TAB PO SCH (19:20)
[2021-08-20] MEDS: QUEtiapine FUMARATE 100 MG TAB PO SCH (19:20)
[2021-08-20 22:00] VITALS: BP 130/59
[2021-08-21] MEDS: ACETAMINOPHEN TAB 650MG DOSE (2X325MG) PO SCH ×3 (02:00→14:21)
[2021-08-21] MEDS: oxyCODONE 5MG TAB PO PRN (04:55)
[2021-08-21 06:00] VITALS: BP 125/62
--- NOTE | 2021-08-21 08:20 | IPNPDOC ---
Text Note Date of Service The patient was seen on 08/21/21. NOTE Post procedure day 2 for right total hip arthroplasty dislocation with closed reduction under anesthetic Patient did well overnight. She reports that her pain is well controlled. Denies any significant complaints or concerns She is grossly neurovascularly intact to the right foot and ankle. The right knee immobilizer is in position. Patient will be reevaluated by physical therapy, reportedly today for discharge home possibly today. She will follow up in the office in 2 weeks for reevaluation. She will have strict hip precautions for 3 months. VS,Fishbone, I+O VS, Fishbone, I+O Vital Signs Date Time Temp Pulse Resp B/P (MAP) Pulse Ox O2 Delivery O2 Flow Rate FiO2 08/21/21 05:25 18 08/20/21 22:00 98.7 78 130/59 (82) 98 Room Air 08/19/21 18:58 3.0 I&O- Last 24 Hours up to 6 AM 08/21/21 06:00 Intake Total 1560 ml Output Total 1400 ml Balance 160 ml EFREM POTTER MD Aug 21, 2021 08:20
[2021-08-21 09:00] VITALS: BP 113/57
[2021-08-21] MEDS: ENALAPRIL MALEATE 5 MG TAB PO SCH ×2 (09:00→09:07)
[2021-08-21] MEDS: METOPROLOL SUCC (TopROL XL) 50MG **XL** TAB PO SCH ×2 (09:00→09:07)
[2021-08-21] MEDS ORDERED: BUMETANIDE 1 MG TAB PO SCH (09:00)
[2021-08-21] MEDS: ADDERALL 5 MG TAB PO SCH (09:05)
[2021-08-21] MEDS: ASPIRIN 81MG ENTERIC TABLET PO SCH (09:06)
[2021-08-21] MEDS: DOCUSATE SODIUM 100MG CAPSULE PO SCH (09:06)
[2021-08-21] MEDS: NAPROXEN 250 MG TAB PO SCH (09:07)
[2021-08-21] MEDS: buPROPion **XL** TABLET 150MG (WELLBUTRIN XL) PO SCH (09:08)
[2021-08-21] MEDS ORDERED: OXYC-517 PO (09:33)
--- NOTE | 2021-08-21 11:17 | DS.PDOC ---
Discharge Summary General Date of Admission Aug 19, 2021 at 14:03 Date of Discharge 08/21/21 Discharge Summary DISCHARGE DIAGNOSES: Dislocated right hip prosthesis history of congestive heartfailure, unknown ejection fraction, hypertension, Ybbc-Stbgj-Lcgymtb disease asa child, status post right hip arthroplasty 03/27., depression Gait instability due to right hip prosthesis dislocation DISCHARGE MEDICATIONS:SEE BELOW DISCHARGE INSTRUCTIONS: PER ORTHO FOR ACTIVITY PCP 1 [facility] 1 [facility] WAX [facility]ALL [facility]OLDER: PURVI POTTER PROCEDURE: RIGHT PROSTHETIC HIP DISLOCATION, CLOSED REDUCTION UNDER ANESTHESIA. HOSPITAL COURSE: This is a 65-year-old female with history of congestive heart failure, unknown ejection fraction, hypertension, Lszc-Kzzvu-Azhcicj disease as a child, status post right hip arthroplasty , depression, uterine bleeding requiring partial hysterectomy, had a traumatic injury yesterday, dislocating her right hip prosthesis with failed attempts to reduce at the bedside and went to the operating room on 08/19/2021. 1. Dislocated right hip prosthesis. Postoperative management per orthopedic surgery. Physical therapy (PT)/occupational therapy (OT) has been consulted. Patient is on as needed pain medications. Bowel regimen. Acute rehabilitation unit (ARU) has been consulted. 2. Congestive heart failure (CHF), compensated. Unknown ejection fraction. Continued on Bumex 2 mg daily for five days and as needed. 3. Hypertension. Controlled. On chronic metoprolol 50 mg daily and enalapril. 4. Depression. On Seroquel. DISCHARGE PHYSICAL EXAMINATION: VITALS: SEE BELOW GENERAL: Patient is awake, alert, oriented to person, place and time, answering questions appropriately. LUNGS: Clear to auscultation. No wheezing, rales or rhonchi. HEART: S1, S2. Sinus rhythm. ABDOMEN: Obese, soft, nontender, nondistended. Positive bowel sounds. EXTREMITIES: Postoperative right hip. Skin color is pink. Skin is warm and dry. Dorsalis pedis and posterior tibialis pulses are noted bilaterally. Sensation is intact. LABORATORY DATA/IMAGING STUDIES: SEE CHART Laboratory data of 08/19/2021 SEE CHART TIME SPENT ON DISCHARGE: 30 MINUTES Vital Signs/I&Os Vital Signs Date Time Temp Pulse Resp B/P (MAP) Pulse Ox O2 Delivery O2 Flow Rate FiO2 08/21/21 09:00 76 113/57 08/21/21 06:00 97.8 19 97 Room Air 08/19/21 18:58 3.0 I&O- Last 24 Hours up to 6 AM 08/21/21 06:00 Intake Total 1560 ml Output Total 1400 ml Balance 160 ml Discharge Medications Scheduled Bupropion Hcl (Bupropion Xl) 150 Mg Tab.er.24h, 150 MG PO DAILY, (Reported) Dextroamphetamine/Amphetamine (Adderall 5 mg Tablet) 5 Mg Tablet, 5 MG PO BID, (Reported) Enalapril Maleate (Enalapril Maleate) 5 Mg Tablet, 5 MG PO DAILY, (Reported) Metoprolol Succinate (Metoprolol Succinate) 50 Mg Tab.er.24h, 50 MG PO DAILY, (Reported) Pramipexole Di-HCl (Mirapex) 0.5 Mg Tablet, 0.5 MG PO QHS, (Reported) Quetiapine Fumarate (Quetiapine Fumarate) 300 Mg Tablet, 300 MG PO QHS, (Reported) Scheduled PRN Oxycodone HCl (Oxycodone HCl) 5 Mg Tablet, 5 MG PO Q4HP PRN for MODERATE PAIN (PS 5-8) Allergies Coded Allergies: ciprofloxacin (Verified Allergy, Unknown, 08/19/21) codeine (Verified Allergy, Unknown, 08/19/21) prednisone (Verified Allergy, Unknown, 08/19/21) DEON LYON MD Aug 21, 2021 11:17
[2021-08-21 14:00] VITALS: BP 132/82
--- NOTE | 2021-08-23 13:33 | ECHO ---
ECHOCARDIOGRAM DATE OF PROCEDURE: 08/19/2021 Age: 65 Gender: Female Height: 165 cm Weight: 93 kg REFERRING PROVIDER: Mariah Mayberry M.D. PATIENT LOCATION: Room 5145. REASON FOR THE STUDY: Heart failure, unspecified. MEASUREMENTS: 2D Measurements: IVS 1.2 cm LV 4.1 cm LVPW 1.2 cm LA 2.9 cm Aorta 3.1 cm IVC 1.5 cm Doppler Measurements: Peak velocity across the aortic valve 1.7 m/sec Peak velocity across the LVOT 1.2 m/sec Peak gradient across the aortic valve 12 mmHg Mean gradient across the aortic valve 6 mmHg Mitral E 1.4 2D COMMENTS: 1. Normal left ventricular size, wall thickness and normal global left ventricular systolic function with a hyperdynamic left ventricle. The estimated left ventricular systolic ejection fraction is 65-70%. 2. Normal left atrium. Normal right atrium and right ventricle. 3. The atrial septum appeared to be normal without evidence of defect or shunt. 4. Normal aortic root. 5. No pericardial effusion seen. 6. The aortic valve, mitral valve, tricuspid valve and pulmonic valve appeared to be normal. The proximal pulmonary artery branches were not well visualized. 7. The inferior vena cava was normal in size. Central venous pressure is most likely normal. DOPPLER: Only trace tricuspid regurgitation detected. Assessment of the left ventricular diastolic function was limited. IMPRESSION: 1. Normal global left ventricular systolic function with a hyperdynamic left ventricle. 2. Trivial aortic stenosis noted, but no aortic regurgitation. 3. Trace tricuspid regurgitation. 4. Not mentioned above, this study was technically limited due to poor acoustic window.
== END 2021-08-21 20:20 | disposition home or self-care (01) | DRG 561 ==
LOC: M ED 10:42 → M ED INP 14:03 → ENRESERV 14:52 → M MS5PR 15:35
PROVIDERS: ADMIT General Practice; ATTEND General Practice
PROC: 0SS Lower Joints, Reposition (ICD-10-PCS; principal; 2021-08-19 16:30)
DX: T84.020A Dislocation of internal right hip prosthesis, initial encounter (principal); I11.0 Hypertensive heart disease with heart failure; I50.9 Heart failure, unspecified; F32.89 Other specified depressive episodes; Z79.899 Other long term (current) drug therapy; Z88.5 Allergy status to narcotic agent; Z88.8 Allergy status to other drugs, medicaments and biological substances; Z96.641 Presence of right artificial hip joint; M91.10 Juvenile osteochondrosis of head of femur [Legg-Calve-Perthes], unspecified leg; Y83.1 Surgical operation with implant of artificial internal device as the cause of abnormal reaction of the patient, or of later complication, without mention of misadventure at the time of the procedure

== ENCOUNTER → 2021-08-28 | Outpatient (CLI) | payer MEDICARE, OTHER ==
[~2021-08-28] MED LIST: ADDE1TAB14 PO; BUPR150T12 PO; DEXTROAMP; ENAL5TA PO; METO1TAB7 PO; MIRA0.5T PO; OXYC-517 PO; PRAMIPEXOLE; QUET300T2 PO
--- NOTE | 2021-08-28 11:27 | REP ---
INDICATION: ARTIFICAL RT HIP. COMPARISON: 08/19/2021. TECHNIQUE: Single view pelvis. FINDINGS: The superior pelvis is not included. Total right hip prosthesis is noted. There is no acute fracture or dislocation. The left hip joint is unremarkable. IMPRESSION: No change since prior study. <Electronically signed by Deejay Chapman > 08/28/21 [id number]
== END ==
LOC: M SOG 07:56
PROVIDERS: ATTEND Orthopaedic Surgery Adult Reconstructive Orthopaedic Surgery
DX: Z96.641 Presence of right artificial hip joint (principal)

== ENCOUNTER → 2022-01-29 | Outpatient (CLI) | payer MEDICARE, OTHER ==
[2022-01-29 11:44] LABS: ALBUMIN 4.1 GM/DL (3.2-5.2); BILIRUBIN,TOTAL 0.4 MG/DL (0.2-1.0); CALCIUM LEVEL 9.6 MG/DL (8.8-10.2); CREATININE FOR GFR 1.07 MG/DL (0.55-1.30); GLOMERULAR FILTRATION RATE 54.6 (>45); POTASSIUM SERUM 3.4 MEQ/L (3.5-5.1); TOTAL PROTEIN 8.1 GM/DL (6.4-8.2)
== END ==
LOC: M LAB 10:13
PROVIDERS: ATTEND Internal Medicine Cardiovascular Disease
DX: I50.30 Unspecified diastolic (congestive) heart failure (principal)

== ENCOUNTER → 2022-03-19 | Outpatient (CLI) | payer MEDICARE | LOC: M SOG 08:08 | PROVIDERS: ATTEND Orthopaedic Surgery Adult Reconstructive Orthopaedic Surgery | DX: T84.028D Dislocation of other internal joint prosthesis, subsequent encounter (principal); Z96.641 Presence of right artificial hip joint ==

== ENCOUNTER → 2022-06-03 | Outpatient (CLI) | payer MEDICARE | LOC: M SOG 08:39 | PROVIDERS: ATTEND Orthopaedic Surgery Adult Reconstructive Orthopaedic Surgery | DX: Z96.641 Presence of right artificial hip joint (principal) ==

== ENCOUNTER → 2022-10-13 | Outpatient (CLI) | payer MEDICARE | LOC: M SLEEP 20:00 | PROVIDERS: ATTEND Nurse Practitioner Adult Health | DX: G47.33 Obstructive sleep apnea (adult) (pediatric) (principal) ==

== ENCOUNTER 2023-10-04 17:48 | Emergency (ER) | payer MEDICARE ==
[~2023-10-04] VITALS: Ht 160 cm; Wt 109.1 kg
[~2023-10-04 17:48] MED LIST changes: +ENAL1TAB48 PO; -ENAL5TA PO
[2023-10-04] MEDS ORDERED: BUME2TAB3 PO (18:07)
[2023-10-04] MEDS ORDERED: PRAZ2CAP PO (18:07)
[2023-10-04] MEDS ORDERED: ADDE20CA3 PO (18:07)
[2023-10-05] MEDS ORDERED: PERCOCET 5MG/325MG TAB PO ONE (00:45)
[2023-10-05 02:15] LABS: BASO % 0.5 % (0.0-1.0); EOS # 0.2 10^3/uL (0.0-0.5); EOS % 2.5 % (0.0-3.0); HEMATOCRIT 37.4 % (36.0-47.0); HEMOGLOBIN 12.8 g/dl (12.0-15.5); LYMPH # 2.1 10^3/uL (1.5-5.0); LYMPH % 26.2 % (24.0-44.0); MEAN CORPUSCULAR HEMOGLOBIN 30.1 pg (27.0-33.0); MEAN CORPUSCULAR HGB CONC 34.2 g/dl (32.0-36.5); MONO # 0.6 10^3/uL (0.0-0.8); MONO % 7.3 % (2.0-8.0); NEUTROPHILS % 63.1 % (36.0-66.0); PLATELET COUNT, AUTOMATED 346 10^3/uL (150-450); RED BLOOD COUNT 4.25 10^6/uL (4.00-5.40)
[2023-10-05 02:21] LABS: ERYTHROCYTE SEDIMENTATION RATE 54 mm/hr (0-30)
[2023-10-05] MEDS ORDERED: ONDANSETRON 4MG ORAL DISINTEGRATING TAB PO ONE ×2 (02:35→03:35)
[2023-10-05 02:39] LABS: URIC ACID 6.8 MG/DL (3.1-7.8)
[2023-10-05 02:40] LABS: C REACTIVE PROTEIN QUANTITATIV 2.2 MG/DL (<1.0)
[2023-10-05 02:42] LABS: CALCIUM LEVEL 8.9 MG/DL (8.3-10.6); GLOMERULAR FILTRATION RATE 58.9 (>45); POTASSIUM SERUM 3.4 MMOL/L (3.5-5.1)
[2023-10-05] MEDS ORDERED: ONDA4TAB6 PO (03:30)
[2023-10-05] MEDS ORDERED: IBUP-1022 PO (03:30)
[2023-10-05 03:59] VITALS: BP 186/107; TEMP 97.4; O2SAT 96
== END 2023-10-05 04:12 | disposition home or self-care (01) ==
LOC: M ED 17:48
DX: M17.11 Unilateral primary osteoarthritis, right knee (principal); M25.461 Effusion, right knee; I10 Essential (primary) hypertension; Z86.79 Personal history of other diseases of the circulatory system; Z88.1 Allergy status to other antibiotic agents; Z88.5 Allergy status to narcotic agent; Z88.8 Allergy status to other drugs, medicaments and biological substances; Z79.83 Long term (current) use of bisphosphonates; Z79.899 Other long term (current) drug therapy

== ENCOUNTER 2024-01-24 18:03 | Emergency (ER) | payer MEDICARE ==
[~2024-01-24] VITALS: Ht 162.6 cm; Wt 100.0 kg
[~2024-01-24 18:03] MED LIST changes: +ADDE20CA3 PO; +BUME2TAB3 PO; +IBUP-1022 PO; +ONDA4TAB6 PO; +PRAZ2CAP PO
[2024-01-24 18:27] LABS: BASO # 0.1 10^3/uL (0.0-0.2); BASO % 0.6 % (0.0-1.0); EOS # 0.2 10^3/uL (0.0-0.5); EOS % 1.8 % (0.0-3.0); HEMATOCRIT 43.8 % (36.0-47.0); HEMOGLOBIN 14.5 g/dl (12.0-15.5); LYMPH # 2.4 10^3/uL (1.5-5.0); LYMPH % 18.2 % (24.0-44.0); MEAN CORPUSCULAR HEMOGLOBIN 29.5 pg (27.0-33.0); MEAN CORPUSCULAR HGB CONC 33.1 g/dl (32.0-36.5); MEAN CORPUSCULAR VOLUME 89.2 fl (80.0-96.0); MONO # 0.8 10^3/uL (0.0-0.8); MONO % 5.9 % (2.0-8.0); NEUTROPHILS # 9.5 10^3/uL (1.5-8.5); NEUTROPHILS % 73.2 % (36.0-66.0); PLATELET COUNT, AUTOMATED 423 10^3/uL (150-450); RED BLOOD COUNT 4.91 10^6/uL (4.00-5.40)
[2024-01-24] MEDS ORDERED: LOSA50TA28 (18:40)
[2024-01-24] MEDS ORDERED: ERGO500029 (18:40)
[2024-01-24 19:01] LABS: LIPASE 45 U/L (12-53)
[2024-01-24 19:04] LABS: ALBUMIN 3.7 G/DL (3.2-5.2); ALKALINE PHOSPHATASE 104 U/L (46-116); ALT/SGPT 36 U/L (7.0-40); AST/SGOT 24 U/L (<34); BILIRUBIN,DIRECT < 0.1 MG/DL (<0.4); BILIRUBIN,TOTAL 0.4 MG/DL (0.3-1.2); BLOOD UREA NITROGEN 13 MG/DL (9-23); CALCIUM LEVEL 9.8 MG/DL (8.3-10.6); CARBON DIOXIDE LEVEL 26 MMOL/L (20-31); CHLORIDE LEVEL 101 MMOL/L (98-107); CK-MB VALUE MASS 1.5 NG/ML (<3.6); CREATININE FOR GFR 0.85 MG/DL (0.55-1.30); GLOMERULAR FILTRATION RATE > 60.0 (>45); GLUCOSE, FASTING 158 MG/DL (74-106); POTASSIUM SERUM 4.4 MMOL/L (3.5-5.1); SODIUM LEVEL 133 MMOL/L (136-145); TOTAL PROTEIN 7.5 G/DL (5.7-8.2)
[2024-01-24 19:07] LABS: CPK CREATINE PHOSPHOKINASE 98 U/L (34-145); MB/CK RELATIVE INDEX 1.53 (< OR =4)
[2024-01-24] MEDS ORDERED: NITROGLYCERIN 0.4MG SUBL TABLET As Ordered ONE (19:21)
[2024-01-24] MEDS: NITROGLYCERIN 0.4MG SUBL TABLET SL PRN (19:24)
[2024-01-24] MEDS ORDERED: ISOVUE-370 76% 100ML VIAL As Ordered ONE (19:27)
[2024-01-24 19:31] VITALS: BP 161/87
[2024-01-24 19:43] LABS: INR 1.04; PARTIAL THROMBOPLASTIN TIME 36.7 SECONDS (24.8-34.2); PROTHROMBIN TIME 13.3 SECONDS (12.5-14.5)
[2024-01-24 19:53] LABS: CK-MB VALUE MASS 3.8 NG/ML (<3.6)
[2024-01-24 19:54] LABS: MB/CK RELATIVE INDEX 4.47 (< OR =4)
[2024-01-24] MEDS: MORPHINE 4 MG/ML 1ML VIAL IV PRN (19:57)
[2024-01-24 20:23] LABS: RSV AMPLIFICATION NEGATIVE (NEGATIVE)
[2024-01-24] MEDS ORDERED: HEPARIN SOD (PORCINE) 5000UNITS/ML 1ML VIAL/SYRINGE IV PRN (20:25)
[2024-01-24] MEDS: HEPARIN SOD (PORCINE) 5000UNITS/ML 1ML VIAL/SYRINGE IV ONE (20:37)
[2024-01-24] MEDS: HEPARIN DRIP 25,000 UNITS in IV 1 EA IV SCH (20:38)
[2024-01-24] MEDS: NITROGLYCERIN/D5W 100MCG/ML 25 MG in IV 1 EA IV SCH (21:22)
[2024-01-24 22:11] LABS: APPEARANCE, URINE CLEAR (CLEAR); BACTERIA, URINE AUTO NEGATIVE (NEGATIVE); BILIRUBIN, URINE AUTO NEGATIVE (NEGATIVE); BLOOD, URINE BLOOD NEGATIVE (NEGATIVE); COLOR, URINE STRAW (YELLOW); GLUCOSE, URINE (UA) AUTO NEGATIVE (NEGATIVE); KETONE, URINE AUTO NEGATIVE (NEGATIVE); LEUKOCYTE ESTERASE, URINE AUTO 1+ (NEGATIVE); NITRITE, URINE AUTO NEGATIVE (NEGATIVE); PROTEIN, URINE AUTO NEGATIVE (NEGATIVE); RBC, URINE AUTO 0 /HPF (0-3); SPECIFIC GRAVITY URINE AUTO 1.031 (1.002-1.035); SQUAMOUS EPITHELIAL CELL UR AU 0 /HPF (0-6); UROBILINOGEN, URINE AUTO 0.2 mg/dL (0.0-2.0); WBC, URINE AUTO 3 /HPF (0-3)
[2024-01-25 00:35] VITALS: BP 134/63; TEMP 98.8; O2SAT 96
== END 2024-01-25 01:01 | disposition short-term general hospital (02) ==
LOC: EDBD 18:03 → M ED 18:03
DX: I21.4 Non-ST elevation (NSTEMI) myocardial infarction (principal); R92.1 Mammographic calcification found on diagnostic imaging of breast; R91.8 Other nonspecific abnormal finding of lung field; I11.0 Hypertensive heart disease with heart failure; E78.5 Hyperlipidemia, unspecified; F32.A Depression, unspecified; Z96.612 Presence of left artificial shoulder joint; Z98.1 Arthrodesis status; Z79.899 Other long term (current) drug therapy; Z88.1 Allergy status to other antibiotic agents; Z88.5 Allergy status to narcotic agent; Z88.8 Allergy status to other drugs, medicaments and biological substances
CPT/HCPCS: 71045; 71275; 80048; 80076; 81001; 82550; 82553; 83690; 83880; 84484; 85025; 85610; 85730; 87631; 93005; 93041; 94760; 96365; 96366; 96375; 96376; 99285; J2305; Q9967

== ENCOUNTER 2024-02-20 11:13 | Emergency (ER) | payer MEDICARE ==
[~2024-02-20] VITALS: Ht 154.9 cm; Wt 89.6 kg
[~2024-02-20 11:13] MED LIST changes: +ERGO500029; +LOSA50TA28
[2024-02-20 11:48] LABS: BASO % 0.6 % (0.0-1.0); EOS # 0.1 10^3/uL (0.0-0.5); HEMATOCRIT 40.4 % (36.0-47.0); HEMOGLOBIN 13.5 g/dl (12.0-15.5); LYMPH # 1.6 10^3/uL (1.5-5.0); LYMPH % 24.5 % (24.0-44.0); MEAN CORPUSCULAR HEMOGLOBIN 29.5 pg (27.0-33.0); MEAN CORPUSCULAR HGB CONC 33.4 g/dl (32.0-36.5); MEAN CORPUSCULAR VOLUME 88.4 fl (80.0-96.0); MONO # 0.6 10^3/uL (0.0-0.8); MONO % 8.3 % (2.0-8.0); NEUTROPHILS # 4.3 10^3/uL (1.5-8.5); NEUTROPHILS % 64.3 % (36.0-66.0); PLATELET COUNT, AUTOMATED 377 10^3/uL (150-450); RED BLOOD COUNT 4.57 10^6/uL (4.00-5.40); WHITE BLOOD COUNT 6.6 10^3/uL (4.0-10.0)
[2024-02-20 12:12] LABS: CK-MB VALUE MASS 1.3 NG/ML (<3.6)
[2024-02-20 12:14] LABS: CALCIUM LEVEL 9.7 MG/DL (8.3-10.6); CREATININE FOR GFR 1.05 MG/DL (0.55-1.30); GLOMERULAR FILTRATION RATE 55.5 (>45); MB/CK RELATIVE INDEX 1.18 (< OR =4); POTASSIUM SERUM 4.4 MMOL/L (3.5-5.1)
[2024-02-20] MEDS ORDERED: ISOVUE-370 76% 100ML VIAL As Ordered ONE (12:16)
[2024-02-20 12:34] LABS: INR 1.06; PARTIAL THROMBOPLASTIN TIME 41.1 SECONDS (24.8-34.2); PROTHROMBIN TIME 13.5 SECONDS (12.5-14.5)
[2024-02-20 12:50] LABS: CK-MB VALUE MASS 1.2 NG/ML (<3.6)
[2024-02-20 12:53] LABS: ALBUMIN 3.3 G/DL (3.2-5.2); BILIRUBIN,DIRECT 0.2 MG/DL (<0.4); BILIRUBIN,TOTAL 0.6 MG/DL (0.3-1.2); TOTAL PROTEIN 7.4 G/DL (5.7-8.2)
[2024-02-20 12:55] LABS: FREE T4 1.37 NG/DL (0.89-1.76); THYROID STIMULATING HORMONE 0.855 uIU/ML (0.55-4.78)
[2024-02-20] MEDS ORDERED: NITROGLYCERIN 2% OINT 1 GM *U/D* PKT TOP ONE (13:20)
[2024-02-20] MEDS ORDERED: HEPARIN SOD (PORCINE) 5000UNITS/ML 1ML VIAL/SYRINGE IV PRN (13:35)
[2024-02-20] MEDS: ONDANSETRON 4MG 2ML VIAL IV ONE (14:40)
[2024-02-20] MEDS: HEPARIN SOD (PORCINE) 5000UNITS/ML 1ML VIAL/SYRINGE IV ONE (14:41)
[2024-02-20] MEDS: HEPARIN DRIP 25,000 UNITS in IV 1 EA IV SCH (14:42)
[2024-02-20] MEDS: ACETAMINOPHEN TAB 650MG DOSE (2X325MG) PO ONE (14:49)
[2024-02-20 14:50] VITALS: BP 128/62; O2SAT 99
[2024-02-20 14:54] VITALS: TEMP 98.7
== END 2024-02-20 14:55 | disposition short-term general hospital (02) ==
LOC: M ED 11:13
DX: I20.0 Unstable angina (principal); I11.0 Hypertensive heart disease with heart failure; Z95.5 Presence of coronary angioplasty implant and graft; Z79.899 Other long term (current) drug therapy; Z88.8 Allergy status to other drugs, medicaments and biological substances; Z88.1 Allergy status to other antibiotic agents; Z88.5 Allergy status to narcotic agent
CPT/HCPCS: 71045; 71275; 80048; 80076; 82550; 82553; 83690; 83880; 84439; 84443; 84484; 85025; 85610; 85730; 93005; 93041; 94760; 96374; 96375; 99285; J2405; Q9967

== ENCOUNTER 2024-03-03 19:43 | Emergency (ER) | payer MEDICARE ==
[~2024-03-03] VITALS: Ht 154.9 cm; Wt 87.8 kg
[2024-03-03 20:13] LABS: BASO # 0.1 10^3/uL (0.0-0.2); BASO % 0.6 % (0.0-1.0); EOS # 0.1 10^3/uL (0.0-0.5); EOS % 0.8 % (0.0-3.0); HEMOGLOBIN 16.2 g/dl (12.0-15.5); LYMPH # 2.6 10^3/uL (1.5-5.0); LYMPH % 23.9 % (24.0-44.0); MEAN CORPUSCULAR HGB CONC 33.8 g/dl (32.0-36.5); MONO # 0.7 10^3/uL (0.0-0.8); MONO % 6.7 % (2.0-8.0); NEUTROPHILS # 7.3 10^3/uL (1.5-8.5); NEUTROPHILS % 67.6 % (36.0-66.0); PLATELET COUNT, AUTOMATED 469 10^3/uL (150-450); RED BLOOD COUNT 5.58 10^6/uL (4.00-5.40); WHITE BLOOD COUNT 10.8 10^3/uL (4.0-10.0)
[2024-03-03] MEDS: ASPIRIN 81MG CHEW TABLET PO ONE (20:40)
[2024-03-03 20:42] LABS: CALCIUM LEVEL 10.2 MG/DL (8.3-10.6); CK-MB VALUE MASS 1.2 NG/ML (<3.6); CREATININE FOR GFR 1.23 MG/DL (0.55-1.30); GLOMERULAR FILTRATION RATE 46.2 (>45); MAGNESIUM LEVEL 1.6 MG/DL (1.8-2.4); MB/CK RELATIVE INDEX 1.01 (< OR =4); POTASSIUM SERUM 3.5 MMOL/L (3.5-5.1)
[2024-03-03 20:44] VITALS: BP 126/67
[2024-03-03] MEDS: NITROGLYCERIN 0.4MG SUBL TABLET SL PRN (20:44)
[2024-03-03 20:46] LABS: THYROID STIMULATING HORMONE 2.319 uIU/ML (0.55-4.78)
[2024-03-03] MEDS ORDERED: ISOVUE-370 76% 100ML VIAL As Ordered ONE (21:10)
[2024-03-03 21:52] LABS: CK-MB VALUE MASS 1.3 NG/ML (<3.6)
[2024-03-03 21:53] LABS: MB/CK RELATIVE INDEX 1.16 (< OR =4)
[2024-03-03] MEDS: MORPHINE 2 MG/ML 1ML VIAL IV PRN (22:22)
[2024-03-04] MEDS: MAGNESIUM OXIDE 400MG TAB (MAG-OX) PO ONE (00:03)
[2024-03-04 00:09] LABS: CK-MB VALUE MASS 1.5 NG/ML (<3.6)
[2024-03-04 00:17] LABS: MB/CK RELATIVE INDEX 1.4 (< OR =4)
[2024-03-04 01:15] VITALS: BP 95/57; TEMP 97.9; O2SAT 92
== END 2024-03-04 01:27 | disposition home or self-care (01) ==
LOC: M ED 19:43
DX: R07.9 Chest pain, unspecified (principal); E83.42 Hypomagnesemia; I44.4 Left anterior fascicular block; I51.7 Cardiomegaly; R00.0 Tachycardia, unspecified; I45.81 Long QT syndrome; I10 Essential (primary) hypertension; E78.5 Hyperlipidemia, unspecified; I25.2 Old myocardial infarction; Z90.49 Acquired absence of other specified parts of digestive tract; Z86.79 Personal history of other diseases of the circulatory system; Z88.1 Allergy status to other antibiotic agents; Z88.5 Allergy status to narcotic agent; Z88.8 Allergy status to other drugs, medicaments and biological substances; Z79.83 Long term (current) use of bisphosphonates; Z79.811 Long term (current) use of aromatase inhibitors; Z79.899 Other long term (current) drug therapy
CPT/HCPCS: 71045; 71275; 80048; 82550; 82553; 83735; 84443; 84484; 85025; 93005; 93041; 94760; 96374; 99285; Q9967

== ENCOUNTER → 2024-10-19 | Outpatient (REF) | payer MEDICARE ==
[~2024-10-19] MED LIST changes: +ONDA-282 PO; -ONDA4TAB6 PO
[2024-10-19 13:22] LABS: APPEARANCE, URINE CLEAR (CLEAR); BACTERIA, URINE AUTO NEGATIVE (NEGATIVE); BILIRUBIN, URINE AUTO NEGATIVE (NEGATIVE); BLOOD, URINE BLOOD 1+ (NEGATIVE); COLOR, URINE YELLOW (YELLOW); GLUCOSE, URINE (UA) AUTO 3+ mg/dL (NEGATIVE); KETONE, URINE AUTO NEGATIVE (NEGATIVE); LEUKOCYTE ESTERASE, URINE AUTO 2+ (NEGATIVE); NITRITE, URINE AUTO NEGATIVE (NEGATIVE); PROTEIN, URINE AUTO NEGATIVE (NEGATIVE); RBC, URINE AUTO 0 /HPF (0-3); SPECIFIC GRAVITY URINE AUTO 1.011 (1.002-1.035); SQUAMOUS EPITHELIAL CELL UR AU 2 /HPF (0-6); UROBILINOGEN, URINE AUTO 0.2 mg/dL (0.0-2.0); WBC, URINE AUTO 11 /HPF (0-3)
[2024-10-19 13:45] LABS: BASO # 0.1 10^3/uL (0.0-0.2); BASO % 0.6 % (0.0-1.0); EOS # 0.1 10^3/uL (0.0-0.5); EOS % 0.7 % (0.0-3.0); HEMATOCRIT 48.3 % (36.0-47.0); HEMOGLOBIN 15.7 g/dl (12.0-15.5); LYMPH # 2.1 10^3/uL (1.5-5.0); LYMPH % 16.9 % (24.0-44.0); MEAN CORPUSCULAR HEMOGLOBIN 28.9 pg (27.0-33.0); MEAN CORPUSCULAR HGB CONC 32.5 g/dl (32.0-36.5); MONO # 0.7 10^3/uL (0.0-0.8); MONO % 5.9 % (2.0-8.0); NEUTROPHILS # 9.5 10^3/uL (1.5-8.5); NEUTROPHILS % 75.6 % (36.0-66.0); PLATELET COUNT, AUTOMATED 407 10^3/uL (150-450); RED BLOOD COUNT 5.43 10^6/uL (4.00-5.40); WHITE BLOOD COUNT 12.5 10^3/uL (4.0-10.0)
[2024-10-19 13:50] LABS: ALBUMIN 4.2 G/DL (3.2-5.2); ALKALINE PHOSPHATASE 139 U/L (35-104); ALT/SGPT 29 U/L (7.0-40); AST/SGOT 19 U/L (<34); BILIRUBIN,TOTAL 0.8 MG/DL (0.3-1.2); BLOOD UREA NITROGEN 15 MG/DL (9-23); CALCIUM LEVEL 10.7 MG/DL (8.3-10.6); CARBON DIOXIDE LEVEL 26 MMOL/L (20-31); CHLORIDE LEVEL 98 MMOL/L (98-107); COMPLEMENT C3 209.9 MG/DL (90.0-170.0); COMPLEMENT C4 45.6 MG/DL (12-36); CREATININE FOR GFR 0.92 MG/DL (0.55-1.30); GLOMERULAR FILTRATION RATE > 60.0 (>45); GLUCOSE, FASTING 131 MG/DL (74-106); POTASSIUM SERUM 3.1 MMOL/L (3.5-5.1); SODIUM LEVEL 138 MMOL/L (136-145); TOTAL PROTEIN 8.7 G/DL (5.7-8.2)
[2024-10-19 13:56] LABS: ERYTHROCYTE SEDIMENTATION RATE 38 mm/hr (0-30)
[2024-10-19 14:07] LABS: TOTAL PROTEIN,RANDOM URINE 16.9 MG/DL (0.0-14.0)
[2024-10-19 14:11] LABS: CREATININE,RANDOM URINE 66.5 MG/DL
== END ==
LOC: M SFHCRHEU 08:57
PROVIDERS: ATTEND Internal Medicine Rheumatology
DX: R76.8 Other specified abnormal immunological findings in serum (principal); M25.50 Pain in unspecified joint; M15.9 Polyosteoarthritis, unspecified

== ENCOUNTER → 2024-10-26 | Outpatient (CLI) | payer MEDICARE | LOC: M SMT 11:16 | PROVIDERS: ATTEND Internal Medicine Rheumatology | DX: Z53.9 Procedure and treatment not carried out, unspecified reason (principal) ==